=== PATIENT | female | born 1965 | race Native Hawaiian/Other Pacific Islander ===

== ENCOUNTER 2019-07-24 10:56 | Outpatient (CLI) | payer OTHER | END 2019-07-24 19:37 | disposition home or self-care (01) | LOC: LABW 10:56 | DX: F43.10 Post-traumatic stress disorder, unspecified (principal); M25.562 Pain in left knee; M25.462 Effusion, left knee; M75.101 Unspecified rotator cuff tear or rupture of right shoulder, not specified as traumatic; G56.03 Carpal tunnel syndrome, bilateral upper limbs; M51.9 Unspecified thoracic, thoracolumbar and lumbosacral intervertebral disc disorder; B19.20 Unspecified viral hepatitis C without hepatic coma; F19.20 Other psychoactive substance dependence, uncomplicated; Z95.828 Presence of other vascular implants and grafts | CPT/HCPCS: 36415; 80076 ==

== ENCOUNTER 2020-05-20 09:58 | Emergency (ER) | payer OTHER ==
[~2020-05-20] VITALS: Ht 152.4 cm; Wt 62.6 kg
[2020-05-20 10:05] VITALS: TEMP 98.9
[2020-05-20 11:35] LABS: PLATELET COUNT 105 K/uL (152-353)
[2020-05-20 11:40] LABS: POTASSIUM 3.8 mmol/L (3.6-5.2)
[2020-05-20 12:49] VITALS: BP 150/78
== END 2020-05-20 12:49 | disposition home or self-care (01) ==
LOC: ED 09:58
PROVIDERS: Family Medicine
DX: E22.2 Syndrome of inappropriate secretion of antidiuretic hormone (principal); F41.8 Other specified anxiety disorders
CPT/HCPCS: 80053; 81000; 85027; 99283